=== PATIENT | female | born 1950 | race Two or more races ===

== ENCOUNTER 2017-05-17 10:43 | Emergency (ER) | payer OTHER ==
[~2017-05-17] VITALS: Ht 149.9 cm; Wt 54.4 kg
[2017-05-17] MEDS ORDERED: ACETAMINOPHEN500 M3 ORAL (11:30)
[2017-05-17 11:43] VITALS: BP 114/82
--- NOTE | 2017-05-17 12:11 | Emergency Room Report ---
History of Present Illness General Chief Complaint: Pain Source: Patient Present Illness HPI 66-year-old female, no significant past medical history, presenting with left sided lymph node swelling for 4 days. Patient claims a slight pain. No fever no chills. She has been able to eat and drink normally. No difficulty breathing Allergies: Coded Allergies: No Known Allergies (Unverified , 05/17/17) Patient History Past Medical History: see triage record Past Surgical History: none Pertinent Family History: none Now: No Reviewed Nursing Documentation: PMH: Agreed, PSxH: Agreed Nursing Documentation-PMH Past Medical History: No Stated History Review of Systems All Other Systems: negative except mentioned in HPI Physical Exam Vital Signs Date Time Temp Pulse Resp B/P (MAP) Pulse Ox O2 Delivery O2 Flow Rate FiO2 05/17/17 10:48 99.0 92 20 150/93 99 Room Air Sp02 EP Interpretation: reviewed, normal General Appearance: normal inspection, well appearing, no apparent distress, alert, GCS 15, non-toxic Head: normocephalic, atraumatic Eyes: bilateral eye normal inspection, bilateral eye PERRL, bilateral eye EOMI ENT: normal pharynx, normal voice, moist mucus membranes, other - L sided isolated lymphadenoapthy, no fluctance. no erythema. mobile Neck: normal inspection, full range of motion, supple Respiratory: normal inspection, lungs clear, normal breath sounds, no respiratory distress, no retraction, no wheezing, speaking full sentences, chest symmetrical Cardiovascular #1: normal inspection, regular rate, rhythm, no edema, normal capillary refill Cardiovascular #2: 2+ radial (R), 2+ radial (L) Gastrointestinal: normal inspection, non tender, soft, non-distended, no guarding Musculoskeletal: normal inspection, back normal, normal range of motion, non- tender Neurologic: normal inspection, alert, oriented x3, responsive, motor strength/ tone normal, sensory intact, normal gait, speech normal Psychiatric: normal inspection, judgement/insight normal, memory normal Skin: normal inspection, normal color, no rash, warm/dry, well hydrated, normal turgor Medical Decision Making Diagnostic Impression: Primary Impression: Lymphadenopathy, cervical ER Course 66-year-old female with left-sided isolated lymphadenopathy for 4 days DDX: Likely viral infection, benign Plan: none ER course: Patient has remained stable during ED stay. Disposition: Patient is to be discharged to home. Prescriptions given are Tylenol Patient is instructed to follow up with their primary care doctor within 5 days. Patient told to followup with her primary care within one week and to monitor the size of her lymph node. She is told that she needs a repeat exam without fail, as if it is persistent, gets bigger, may need imaging or needle aspiration Strict return precautions discussed with patient such as fever, chills, worsening/severe pain, chest pain, SOB, nausea, vomiting, which may indicate severe illness. Patient verbalizes understanding and agrees with plan. Please note that this Emergency Department Report was dictated using [employer] machine operator technology software, occasionally this can lead to erroneous entry secondary to interpretation by the dictation equipment Last Vital Signs Date Time Temp Pulse Resp B/P (MAP) Pulse Ox O2 Delivery O2 Flow Rate FiO2 05/17/17 11:43 96 16 114/82 98 Room Air 05/17/17 11:43 98.4 Disposition: HOME, SELF-CARE Condition: Improved Scripts Acetaminophen* (ACETAMINOPHEN EXTRA STRENGTH*) 500 Mg Tablet 500 MG ORAL Q6H, #30 TAB Prov: Dianna Suárez M.D. 05/17/17 Referrals: [facility],REFERRING (PCP) Patient Instructions: Lymphadenopathy Additional Instructions: Please followup with your primary care doctor in one week Please return to the emergency room if you're experiencing worsening pain, difficulty breathing, difficulty swallowing, fever chills Dianna Suárez M.D. May 17, 2017 12:11
== END 2017-05-17 11:43 | disposition home or self-care (01) ==
LOC: EMR 11:35
DX: R59.0 Localized enlarged lymph nodes (principal)
CPT/HCPCS: 99283